=== PATIENT | female | born 1995 | race Caucasian/White ===

== ENCOUNTER 2016-11-23 02:05 | Emergency (ER) | payer OTHER ==
[~2016-11-23] VITALS: Ht 165.1 cm; Wt 141.0 kg
[~2016-11-23 02:05] MED LIST: AMOX1TAB12 PO; HYDR-3702 PO; IBUP-30 PO
--- OUTSIDE RECORDS SUMMARY | 2016-11-23 02:09 | XMS REPORT | Continuity of Care Document ---
Author Author [facility] Organization [facility] Address Unknown Phone Unavailable Care Team Providers Care Metal Spray Operator Name Role Phone JUANCHO ROMERO MD PCP [phone] Insurance Providers Payer Name Policy Number Subscriber Name Relationship Other1 [id number] [employer] 19 Father Chief Complaint and Reason for Visit Chief Complaint Ear/Nose/Throat Complaint Reason for Visit Pharyngitis Problems Medical Problems Problem Onset Date Status Cat bite - wound 06/28/2012 Resolved Cellulitis 06/28/2012 Resolved Pharyngitis ~01/02/2015 Active Medications Medication Dose Route Sig Days/Qty Instructions Order Date Discontinued Date Status Ibuprofen 400 Mg ORAL NEEDED 06/28/12 Active Amoxicillin/Clavulanate Potassium 875 Mg ORAL TWICE A DAY 20 Qty 01/09/15 Discontinued Hydrocodone Bit/Acetaminophen 1-2 Each ORAL EVERY 6 HOURS PRN PAIN 10 Qty 01/09/15 Active Social History No social history. Hospital Discharge Instructions No hospital discharge instructions. Plan of Care Discharge Date 01/09/15 11:25pm Disposition 01 HOME OR SELF-CARE Condition at Discharge Stable Instructions/Education Provided Pharyngitis (ED) Prescriptions See Medications Section Referrals JUANCHO ROMERO MD Additional Instructions/Education Hydrocodone/APAP - 5/325 - 1-2 tablets every 6 hours as needed for pain Continue over the counter medication for pain If no improvement in 2-3 days or if symptoms worsen - start amoxicillin 500mg three times daily for 10 days. Follow up with Dr. Romero if no improvement by the end of the week Return if symptoms worsen You will be contacted if the strep culture comes back positive Some of your test results may not be complete prior to your leaving the Emergency Department. The Emergency Department is not authorized to give test results over the phone. Please contact the doctor's office listed in this packet of information for your final results. Follow up with your primary care physician or return to the Emergency Department for worsening or worrisome symptoms. * Emergency Department phone number: [phone], x [phone]* MEDICAL RECORD If you need copies of your X-rays, call [phone]. If you need copies of your medical record, including lab results, a signed authorization for release of records will be required. A telephone call for release of Health Information is not allowed. BILLING Billing can sometimes be confusing and frustrating. To help avoid confusion in the future, please take a moment to acquaint yourself with the billing parties for services. [employer] Emergency Room Services [facility] Physician Services [facility] Patients will receive bills for services from the appropriate provider. If you have any questions about your [facility] bill, our staff will be happy to assist you. Please call [phone], and ask for the billing department. THANK YOU for choosing [facility] as your emergency care provider! Functional Status No functional status results. Allergies, Adverse Reactions, Alerts Allergen Type Severity Reaction Status Last Updated No Known Drug Allergies Active 06/28/12 Immunizations No immunization records. Vital Signs Acute Vital Signs Vital Response Date/Time Temperature (Fahrenheit) 98.7 Pulse 96 bpm Respirations 16 Height 5 ft 5 in Weight 312 lb Body Mass Index 52.0 kg/m^2 Results Test Source Date Result Interp. Ref. Range Comments Streptococcus Screen January 09, 2015 10:38pm Negative Negative Procedures No known history of procedures. Encounters Encounter Location Date/Time Departed Emergency Room [facility] 01/09/15 10:39pm Recent Diagnosis
--- OUTSIDE RECORDS SUMMARY | 2016-11-23 02:13 | XMS REPORT | Continuity of Care Document ---
Author Author [facility] Organization [facility] Address Unknown Phone Unavailable Care Team Providers Care Enterostomal Therapy Nurse Name Role Phone JUANCHO ROMERO MD PCP [phone] Insurance Providers Payer Name Policy Number Subscriber Name Relationship Other1 [id number] [employer] 19 Father Chief Complaint and [...] worrisome symptoms. * Emergency Department phone number: [phone], x [phone]* MEDICAL RECORD If you need copies of your X-rays, call [phone] x [phone]. If you need copies of [...] the billing parties for services. [employer] Emergency Room Services [facility] Physician Services [facility] Patients will receive bills for services from the appropriate provider. If you have any questions about your [facility] bill, our staff will be happy to assist you. Please call [phone], and ask for the billing department. THANK YOU for choosing [facility] as your emergency care provider! Functional [...] Encounters Encounter Location Date/Time Departed Emergency Room [facility] 01/09/15 10:39pm Recent Diagnosis
[2016-11-23] MEDS ORDERED: DEXAMETHASONE 4 MG PO ONE (02:40)
[2016-11-23] MEDS ORDERED: AMOXICILLIN 875 MG PO ONE (02:40)
[2016-11-23] MEDS ORDERED: AMOX875T47 PO (02:41)
[2016-11-23] MEDS ORDERED: DEXA4TAB PO (02:41)
[2016-11-23 03:20] VITALS: BP 153/76
== END 2016-11-23 03:21 | disposition home or self-care (01) ==
LOC: ED 02:09
DX: J03.90 Acute tonsillitis, unspecified (principal)
CPT/HCPCS: 99283